=== PATIENT | female | born 2000 | race African-American/Black ===

== ENCOUNTER 2025-09-20 10:59 | Emergency (ER) | payer OTHER, SELFPAY ==
[2025-09-20 11:01] VITALS: BP 134/89; PULSE 101; RESP 18; TEMP 36.7; O2SAT 100
[2025-09-20 12:08] LABS: Add Urine Microscopic? YES; Appearance Urine Clear (Clear); Glucose Urine UA Negative (Negative); Leukocyte Esterase Ur Negative LEU/UL (Negative); Nitrate Urine Negative (Negative); Non Pathogenic Casts 0-2; Specific Grav Ur 1.034 (1.001-1.035)
[2025-09-20] MEDS: cefTRIAXone 0.5 GM, LIDOCAINE 1% LOCAL INJ 2.1 ML IM (12:18)
[2025-09-20] MEDS: KETOROLAC 30 MG/ML VIAL (*BKC) 15 MG IM (12:19)
[2025-09-20] MEDS: DOXYCYCLINE HYCLATE 100 MG TABLET PO (12:20)
--- OUTSIDE RECORDS SUMMARY | 2025-09-20 12:35 | XMS_ITS | Encounter Summary ---
Author Organization [facility] Healthcare Address [address] [place] [address] Care Team Providers Care Business Continuity Strategy Director Name Role Phone Shanta Guerra NP Primary Care Provider Encounter Details Date Type Department Care Team (Latest Contact Info) Description 07/21/2025 Results Follow-Up [facility] Medical [facility] Obstetrical Gynecology [address] [phone] Mariangel Berrios MD [facility] [address] hCG, blood, quantitative Social History Tobacco Use Types Packs/Day Years Used Date Smoking Tobacco: Never Smokeless Tobacco: Never Alcohol Use Standard Drinks/Week Comments Never 0 (1 standard drink = 0.6 oz pur e alcohol) Social Connection and Isolation Panel Answer Date Recorded In a typical week, how many times do you talk on the phone with family, friends, or neighbors? More than three times a week 12/03/2022 How often do you get togethe r with friends or relatives? More than three times a week 12/03/2022 How often do you attend chur or restoration services? Patient declined 12/03/2022 Do you belong to any clubs o r organizations such as uatsdin groups, unions, fraternal or athletic groups, or school groups? Patient declined 12/03/2022 How often do you attend meet ings of the clubs or organizations you belong to? Patient declined 12/03/2022 Are you , , di vorced, , never , or living with a partner? Living with partner 12/03/2022 Overall Financial Resource Strain (CARDIA) Answe r Date Recorded How hard is it for you to pa y for the very basics like food, housing, medical care, and heating? Not hard at all 12/03/2022 PHQ-2 Answer Date Recorded PHQ-2 Total Score (If total score is 3 or more points, staff should administer the PHQ-9) 4 06/10/2025 [facility] [place] [facility] Occup[facility] ional [facility] - Occupational Stress Questionnaire Answer Date Recorded Do you feel stress - tense, restless, nervous, or anxious, or unable to sleep at night because your mind is troubled all the time - these days? Only a little 12/03/2022 Exercise Vital Sign Answer Date Recorde d On average, how many days pe r week do you engage in moderate to strenuous exercise (like a brisk walk)? 0 days Minutes of Exercise per Session Not on file 12/03/2022 Hunger Vital Sign Answer Date Recorded Within the past 12 months, y ou worried that your food would run out before you got the money to buy more. Never true 12/03/19 23 Within the past 12 months, t he food you bought just didn't last and you didn't have money to get more. Never true 12/03/2022 PRAPARE - Transportation Answer Date Re corded In the past 12 months, has l ack of transportation kept you from medical appointments or from getting medications? No 11/21 In the past 12 months, has l ack of transportation kept you from meetings, work, or from getting things needed for daily living? No 12/03/2022 Housing Stability Vital Sign Answer Adam e Recorded In the last 12 months, was t here a time when you were not able to pay the mortgage or rent on time? No 12/03/2022 Number of Places Lived in the Last Year Not on f ile 12/03/2022 In the last 12 months, was t here a time when you did not have a steady place to sleep or slept in a jail (including now)? No 12/03/2022 [place] Depression Scale Answer Date Recorded [place] Depression Scale Total 11 02/18/2023 The thought of harming myself has occurred to me . Never 02/18/2023 PHQ-9 Answer Date Recorded PHQ-9 Total Score 8 06/10/2025 AUDIT-C Answer Date Recorded Q1: How often do you have a drink containing alc ohol? Never 06/10/2025 Average Number of Drinks Not on file 025 Frequency of Binge Drinking Not on file 05/22 Personal Safety Answer Date Recorded Have you ever been in or are you currently in a harmful physical or emotional relationship or is someone making you feel afraid or unsafe? Denies 02/17/2025 Comments No Sex and Gender Information Value Date Recorded Sex Assigned at Not on file Legal Sex Female 2:00 PM CDT Gender Identity Female 12/28/2021 4:59 PM [employer] Sexual Orientation Bisexual 04/07/2022 11 :14 PM CDT Occupation Industry Job Start Date Job End Date [employer] Not on file Not on file Not o n file [employer] Not on file Not on file Not on file unemployed Not on file Not on file Not on file documented as of this encounter Plan of Treatment Not on file documented as of this encounter Visit Diagnoses Not on filedocumented in this encounter Care Teams Business Continuity Strategy Director Relationship Specialty Start Date End Date Shanta Guerra NP [address] [place] [id number] PCP - General Family Medicine 06/10/25 documented as of this encounter
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
--- OUTSIDE RECORDS SUMMARY | 2025-09-20 12:35 | XMS_ITS | Encounter Summary ---
Author Organization [facility] Healthcare Address [address] [place] [address] Care Team Providers Care Information Technology Account Manager Name Role Phone Shanta Guerra NP Primary Care Provider [phone] Encounter Details Date Type Department Care Team (Latest Contact Info) Description 08/31/2025 Results Follow-Up [facility] Medical Group Primary Care at [address] [phone] Shanta Guerra NP [address] [place] [address] hCG, blood, quantitative Social History Tobacco [...] often do you attend chur ch or synagogue services? Patient declined 12/03/2022 Do you belong to any clubs o r organizations such as orthodoxy groups, unions, fraternal or athletic groups, or [...] staff should administer the PHQ-9) 4 06/10/2025 [facility] of Occupat ional [facility] - Occupational Stress Questionnaire Answer Date Recorded [...] place to sleep or slept in a prison (including now)? No 12/03/2022 [place] Depression Scale Answer Date Recorded [place] Depression Scale Total 11 02/18/2023 The thought [...] CDT Gender Identity Female 12/28/2021 4:59 PM EXTENSION PROFESSOR Sexual Orientation Bisexual 04/07/2022 11 :14 PM CDT Occupation Industry Job Start Date Job End Date [employer] Not on file Not on file Not o n file [employer] Not on file Not on file Not on file unemployed Not on file Not on file Not on file documented as of this encounter Functional Status * BP Location Answer Date of Assessment Author Left arm 08/31/2025 2:28 PM EXTENSION PROFESSOR Asif Carolina MA * BP Location Answer Date of Assessment Author Left arm 08/31/2025 2:28 PM EXTENSION PROFESSOR Asif Carolina MA documented as of this encounter Plan of Treatment Not on file documented as of this encounter Visit Diagnoses Not on filedocumented in this encounter Care Teams Information Technology Account Manager Relationship Specialty Start Date End Date Shanta Guerra NP [address] [place] [phone] PCP - General Family Medicine 06/10/25 documented as of this encounter
--- NOTE | 2025-09-20 12:50 | ED_ITS ---
HPI - Back Pain/Injury General Chief Complaint: Back Pain/Injury Stated Complaint: back pain Time Seen by Provider: 09/20/25 11:50 History of Present Illness HPI Narrative: Patient here with low back pain after lifting heavy heavy boxes last night, she has also noticed vaginal discharge and is concerned for possible STD and would like to get tested and treated. No difficulty walking, no focal numbness or weakness. Related Data Allergies Allergy/AdvReac Type Severity Reaction Status Date / Time No Known Allergies Allergy Verified 09/20/25 11:58 Review of Systems Review of Systems: All systems reviewed & are unremarkable except as noted in HPI and below Exam Narrative: EXAMINATION OF ORGAN SYSTEMS/BODY AREAS: Constitutional: Vital signs per nursing GENERAL:[No acute distress, non-toxic appearing.] HEAD: Normal with no signs of head trauma. EYES: EOMI, conjunctiva normal ENT: Hearing grossly intact LUNGS: Nonlabored breathing. HEART: [Regular rate and rhythm] ABD: [Soft], [nontender to palpation] EXT: Normal range of motion, no midline tenderness to back, very slight tenderness to the left lower back SKIN: [No rashes or lesions.] NEURO: [Alert and oriented x 3. No gross focal sensory or strength deficits.] Ambulating with normal steady gait PSYCH: Normal affect Course Vital Signs Vital signs: Vital Signs Temperature 98.1 F 09/20/25 11:01 Pulse Rate 101 H 09/20/25 11:01 Respiratory Rate 18 09/20/25 11:01 Blood Pressure 134/89 09/20/25 11:01 Pulse Oximetry 100 09/20/25 11:01 Oxygen Delivery Room Air 09/20/25 11:01 Temperature 98.1 F 09/20/25 11:01 Pulse Rate 101 H 09/20/25 11:01 Respiratory Rate 18 09/20/25 11:01 Blood Pressure 134/89 09/20/25 11:01 Pulse Oximetry 100 09/20/25 11:01 Oxygen Delivery Room Air 09/20/25 11:01 MDM - Back Pain/Injury MDM Narrative Medical decision making narrative: 24-year-old female with acute back pain, also would like to have STD testing and treatment. Normal motor and sensory exam. Patient able to ambulate. No evidence of acute cord compression, osteomyelitis/discitis or cauda equina without saddle anesthesia, urinary retention/incontinence, numbness/tingling in lower extremiti es, fever, history of IV drug use, cancer or immunosuppression. Doubt AAA or aortic dissection without severe pain/discomfort or any neurovascular deficits Toradol given for pain relief On reevaluation, the symptoms are improved. Patient is able to rest more comfortably. Ambulating without difficulty. Gonorrhea/chlamydia sent for testing, antibiotic started after discussion with patient, they are counseled on safe sex practices and should follow up regarding results, and can return to ER for any worsening symptoms. Lab Data Labs: Lab Results 09/20/25 Range/Units 12:00 Urine Color Yellow (Yellow) Urine Appearance Clear (Clear) Urine pH 5.5 (5.0-9.0) Ur Specific [place] 1.034 (1.001-1.035) Urine Protein Trace (Negative) mg/dL Urine Glucose (UA) Negative (Negative) mg/dL Urine Ketones Trace H (Negative) mg/dL Ur Blood (Man) Negative (Negative) Urine Nitrate Negative (Negative) Urine Bilirubin Negative (Negative) Urine Urobilinogen 1.0 (<2.0) mg/dL Leukocyte Esterase Rfl Negative (Negative) JUVENAL/UL Urine RBC 0-2 (0-2) /hpf Urine WBC 0-5 (0-3) /hpf Ur Squamous Epith Cells Occasional (Few) /hpf Urine Bacteria 1+ H /hpf Urine Casts 0-2 Discharge Plan Discharge Clinical Impression: Strain of lumbar region, Concern about STD in female without diagnosis Patient Disposition: Home Condition: Stable Instructions: Antibiotic Form, Sexually Transmitted Diseases (ED), Acute Low Back Pain (ED) Additional Instructions: Please follow up with your doctor; you can always return for any further issues. Take the medications as prescribed. Take ibuprofen and Tylenol as needed for pain. You can always return to the ER for any further issues. Patient Language: Barbadian Prescriptions: New doxycycline hyclate 100 mg capsule 100 mg PO Q12H 7 Days Qty: 14 0RF metronidazole 500 mg tablet 500 mg PO Q12H Qty: 14 0RF Follow-up/Referrals: PHYSICIAN NOT ON STAFF,NONSTAFF [Non-Staff]
--- OUTSIDE RECORDS SUMMARY | 2025-09-20 13:30 | XMS_ITS | Encounter Summary ---
Author Organization [facility] Healthcare Address [address] [place] [address] Care Team Providers Care Supervisor In Circuit Testing Name Role Phone Shanta Guerra NP Primary Care Provider [phone] Encounter Details Date Type Department Care Team (Latest Contact Info) Description 07/21/2025 Results Follow-Up [facility] Medical Group Obstetrical Gynecology [address] [phone] Mariangel Berrios MD [facility] [address] hCG, blood, quantitative Social History [...] How often do you attend chur or gnosticist services? Patient declined 12/03/2022 Do you belong to any clubs o r organizations such as shinto groups, unions, fraternal or athletic groups, or [...] staff should administer the PHQ-9) 4 06/10/2025 [facility] [place] of Occupat ional Health - Occupational Stress [...] place to sleep or slept in a skilled nursing (including now)? 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
--- OUTSIDE RECORDS SUMMARY | 2025-09-20 13:30 | XMS_ITS | Encounter Summary ---
Author Organization [facility] Healthcare Address [address] [place] [address] Care Team Providers Care Fixture Repairer Fabricator Name Role Phone Shanta Guerra NP Primary Care Provider [phone] Encounter Details Date Type Department Care Team (Latest Contact Info) Description 08/31/2025 Results Follow-Up [facility] Medical Group Primary Care at [address] [phone] Shanta Guerra NP [address] [place] [address] hCG, blood, quantitative Social History Tobacco [...] often do you attend chur ch or latter day services? Patient declined 12/03/2022 Do you belong to any clubs o r organizations such as temple groups, unions, fraternal or athletic groups, or [...] staff should administer the PHQ-9) 4 06/10/2025 [facility] of Occupat ional [facility] - Occupational Stress Questionnaire Answer Date [...] place to sleep or slept in a assisted (including now)? 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 Not on file Not o n file [employer] Not on file Not on file Not on file unemployed Not on file Not on file Not on file documented as of this encounter Functional Status * BP Location Answer Date of Assessment Author Left arm 08/31/2025 2:28 PM CONSTRUCTION FIELD ENGINEER Asif Carolina MA * BP Location Answer Date of Assessment Author Left arm 08/31/2025 2:28 PM CONSTRUCTION FIELD ENGINEER Asif Carolina MA documented as of this encounter Plan of Treatment Not on file documented as of this encounter Visit Diagnoses Not on filedocumented in this encounter Care Teams Fixture Repairer Fabricator Relationship Specialty Start Date End Date Shanta Guerra NP [address] [place] [phone] PCP - General Family Medicine 06/10/25 documented as of this encounter
--- OUTSIDE RECORDS SUMMARY | 2025-09-20 13:30 | XMS_ITS | Clinical Summary ---
Author [facility] Address [address] [place] [phone] Care Team Providers Care Public Information Officer Name Role Phone Shanta Guerra NP Primary Care Provider [phone] Allergies No known active allergies Medications albuterol [...] 09/02/2025 Assessment & Plan (09/02/2025 5:33 AM ENGINEER SYSTEM ADMINISTRATOR): Ordered serum hCG, not currently on control, [...] 09/02/2025 Assessment & Plan (09/02/2025 5:24 AM ENGINEER SYSTEM ADMINISTRATOR): Improved Encouraged to: Make healthy food choices, [...] 06/10/2025 Assessment & Plan (09/02/2025 5:32 AM ENGINEER SYSTEM ADMINISTRATOR): Previously referred to Plastic Surgery Reviewed Dr. [...] 09/17/22 Assessment & Plan (11/15/2022 11:34 AM ENGINEER SYSTEM ADMINISTRATOR): S/p anesthesia consult at [facility] 09/17/22 Class 3 severe obesity due t o excess calories without serious comorbidity with body mass index (BMI) of 40.0 to 44.9 in adult 08/30/2021 Assessment & Plan (09/02/2025 5:24 AM ENGINEER SYSTEM ADMINISTRATOR): Improved Encouraged to: Make healthy food choices, [...] (11/30/2022): Added automatically from request for surgery [id number] Supervision of high-risk pre gnancy, third trimester 10/23/2022 06/10/2025 Overview (10/27/2022): [x] Co-management vs. [] Full M Care; [] Red Team [x] Blue Team Referring Provider: Mane Garcia [phone] [] or Medicare Insurance [x] Dating Criteria: [...] [] MOC: [] Method of feeding: [] Lgsw: [] PP Depression Discussed: Poor growth affecting [...] dopplers Assessment & Plan (11/15/2022 11:34 AM ENGINEER SYSTEM ADMINISTRATOR): Diagnosed by AC <10% (EFW >10%). Previously [...] 08/30/202103/22 Assessment & Plan (08/30/2021 2:21 PM ENGINEER SYSTEM ADMINISTRATOR): Test in office negative, reviewed with patient Will order hcg quantitative, will notify her of results as they become available Missed menses 08/30/2021 05/18/2022 Assessment & Plan (08/30/2021 2:22 PM ENGINEER SYSTEM ADMINISTRATOR): Discussed that this could be secondary to irregularity of ocp, additionally could be another comorbidity. Will evaluate further with labs, will notify her of results as they become available. She will f/u in office in the next week - we discussed possibly initiating an ocp pending lab results. Encounters Date Type Department Care Team Description 08/31/2025 3:15 PM ENGINEER SYSTEM ADMINISTRATOR Lab [facility] [address] [place] [phone] Breast tenderness 08/31/2025 2:15 PM ENGINEER SYSTEM ADMINISTRATOR Office Visit [facility] Primary Care at [address] [place] [phone] Shanta Guerra NP Breast tenderness (Primary Dx); Macromastia; Class 3 severe obesity due to excess calories without serious comorbidity with body mass index (BMI) of 40.0 to 44.9 in adult; Severe obesity (HCC) 08/31/2025 Results Follow-Up [facility] Primary Care at [address] [phone] Shanta Guerra NP hCG, blood, quantitative 08/25/2025 10:45 AM ENGINEER SYSTEM ADMINISTRATOR Therapy [facility] 1 OP Physical Therapy [address] [place] [address] Ihsan Garcia, LAND CLASSIFIER Spondylosis of thoracolumbar spine (Primary Dx); Chronic bilateral low back pain with left-sided sciatica 08/18/2025 10:45 AM CDT [facility] 1 OP Physical Therapy [address] [place] [address] Ihsan Garcia, LAND CLASSIFIER Spondylosis of thoracolumbar spine (Primary Dx); Chronic bilateral low back pain with left-sided sciatica 07/28/2025 10:00 AM CDT [facility] 1 OP Physical Therapy [address] [place] [address] Ihsan Garcia, LAND CLASSIFIER Spondylosis of thoracolumbar spine (Primary Dx); Chronic bilateral low back pain with left-sided sciatica 07/21/2025 9:45 AM CDT Lab [facility] Building [address] [place] [address] Missed periods 07/21/2025 9:00 AM CDT [facility] 1 OP Physical Therapy [address] [place] [address] Range, Yumiko, LAND CLASSIFIER Spondylosis of thoracolumbar spine (Primary Dx); Chronic bilateral low back pain with left-sided sciatica 07/21/2025 Results Follow-Up [facility] Obstetrical Gynecology [address] [place] [address] [address] [place] [phone] Mariangel Berrios MD hCG, blood, quantitative 07/20/2025 Telephone [facility] Primary Care at [address] [place] [phone] Shanta Guerra NP 07/16/[address] [facility] Office [facility] 1 OP Physical Therapy [address] [place] [address] [address] [place] [address] Elisa, Yumiko, LAND CLASSIFIER 07/08/2025 10:[address] [facility] Office [facility] 1 OP Physical Therapy [address] [place] [address] [address] [place] [address] Ihsan Garcia, LAND CLASSIFIER Spondylosis of thoracolumbar spine (Primary Dx); Chronic bilateral low back pain with left-sided sciatica; Chronic upper back pain 07/06/2025 Plan of Care Documentation [facility] 1 OP Physical Therapy [address] [place] [address] [address] [place] [address] 07/05/2025 2:[address] [facility] Office [facility] 1 OP Physical Therapy [address] [place] [address] [place] [phone] Dayron Frank, PT Spondylosis of thoracolumbar spine (Primary Dx); Chronic bilateral low back pain with left-sided sciatica; Chronic upper back pain; Cervicalgia 07/01/2025 Orders Only [facility] Obstetrical Gynecology [address] [place] [address] [address] [place] [phone] Mariangel Berrios MD Missed periods (Primary Dx) 06/22/2025 10:30 AM CDT Office Visit [facility] [place] [facility] [address] [place] [address] [place] [phone] Evan Ricardo MD Macromastia (Primary Dx) [...] SURGERY 10/21/2014 - 10/20/2015 Scoliosis surgery at [facility] SECTION 12/03/2022 Medical History Medical History [...] often do you attend chur ch or episcopalian services? Patient declined 12/03/2022 Do you belong to any clubs o r organizations such as christianity groups, unions, fraternal or athletic groups, or [...] staff should administer the PHQ-9) 4 06/10/2025 [facility] - Occupational Stress Questionnaire Answer Date [...] place to sleep or slept in a long term (including now)? 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 on file Not on file Not [...] GREGG DAKOTA mojica, Mariangel Fontana MD Delivery Location:[facility] C ampus ([facility] L AND D PROCEDURE) Last Filed Vital Signs Vital Sign Reading Time Taken Comments Blood Pressure 112/64 08/31/2025 2:28 PM ENGINEER SYSTEM ADMINISTRATOR Pulse 88 08/31/2025 2:28 PM ENGINEER SYSTEM ADMINISTRATOR Temperature 36.7 C (98 F) 08/31/2025 2:28 PM ENGINEER SYSTEM ADMINISTRATOR Respiratory Rate 14 08/31/2025 2:28 PM ENGINEER SYSTEM ADMINISTRATOR Oxygen Saturation 98% 08/31/2025 2:28 PM ENGINEER SYSTEM ADMINISTRATOR Inhaled Oxygen Concentration - - Weight 119.8 kg (264 lb 1.6 oz) 08/31/2025 2:28 PM ENGINEER SYSTEM ADMINISTRATOR Height 167.6 cm (5' 5.98) 08/31/2025 2:28 PM CS T Body Mass Index 42.65 08/31/2025 2:28 PM ENGINEER SYSTEM ADMINISTRATOR Plan of Treatment Health Maintenance Due Date [...] HCG, BLOOD, QUANTITATIVE Routine 08/31/2025 3:17 PM ENGINEER SYSTEM ADMINISTRATOR Breast tenderness HCG, BLOOD, QUANTITATIVE Routine 07/21/2025 9:49 AM CDT Missed periods N. GONORRHOEAE/C. TRACHOMATIS AMPLIFICATION Routine 10/12/2024 9:11 AM ENGINEER SYSTEM ADMINISTRATOR Screening examination for STD (sexually transmitted disease) HEPATITIS C ANTIBODY Routine 04/16/2022 12:06 PM CDT Obesity affecting in first trimester from Last 3 Months or Most Recently Relevant to Health Maintenance Results * hCG, blood, quantitative (08/31/2025 3:17 PM ENGINEER SYSTEM ADMINISTRATOR) hCG, quant <5.0 0.0 - 5.0 IUnits/L Comment: Interpretive Data Male: < 5 IU/L Non- premenopausal Female: <5 IU/L The Lizzeth hCG Beta Quant assay procedure was used. Results from different manufacturers or methods may not be comparable. Serial testing should be performed using the same method. Interpretive Data was last revised on 2023 Testing performed by: [facility], [address] [place] [address]., [id number] Blood 08/31/2025 3:17 PM ENGINEER SYSTEM ADMINISTRATOR 08/31/2025 3:56 PM ENGINEER SYSTEM ADMINISTRATOR us Shanta Guerra NP LAB BLOOD ORDERABLES Edited Resu lt - Final [facility] [address] [facility] Department [place] [address] * hCG, blood, quantitative (07/21/2025 [...] last revised on 2023 Testing performed by: [facility], [address] [place] [address]., [id number] Blood 07/21/2025 9:49 AM CDT 07/21/2025 10:13 AM CDT Mariangel Berrios MD LAB BLOOD ORDERABLES Angela l Result Performing Organization Address [facility] Co de Phone Number [place] [phone] [facility] [place] [address] * N. gonorrhoeae/C. trachomatis Amplification Urine (10/12/2024 9:11 AM ENGINEER SYSTEM ADMINISTRATOR) Pathologist [facility] C. trachomatis Not Detected [facility] Comment:Testing performed by : [facility], [address] [place] [address]., [address] N. gonorrhoeae Not Detected DANG Comment: Interpretive Data This assay detects Chlamydia trachomatis and Neisseria gonorrhoeae by nucleic acid amplification testing (NAAT). This assay has been cleared by the [place] Food and Drug administration. The performance characteristics of this test have been verified by the [facility] Molecular Infectious Disease laboratory. The performance characteristics of this test have not been evaluated in individuals less than 14 years of age. Current Interpretive Data was last revised on 2023. Testing performed by: [facility], [address] [place] [address]., [id number] Urine (None) 10/12/2024 9:11 AM ENGINEER SYSTEM ADMINISTRATOR 10/12/2024 7:56 PM ENGINEER SYSTEM ADMINISTRATOR Mariangel Berrios MD LAB MICROBIOLOGY - GENERA L ORDERABLES Final Result Performing Organization Address City/[facility]/ZIP Co de Phone Number [facility] [address] [facility] [place] [address] [facility] * Hepatitis C antibody (04/16/2022 12:06 [...] CDT 04/16/2022 6:29 PM CDT Dominique Hewitt [facility] LAB MICROBIOLOGY - GENE RAL ORDERABLES Final Result [facility] [address] [facility] Department [place] [address] from Last 3 Months or Most Recently Relevant to Health Maintenance [facility] Advance Directives For more information, please contact: [phone] * Full Code (Latest Code Status on File) Date Activated Date Inactivated Comments 12/03/2022 10:25 AM 12/05/2022 4:13 PM * Full Code Date Activated Date Inactivated Comments 12/03/2022 5:14 AM 12/03/2022 10:24 AM Full CPR in case of cardiopulmonary arrest Care Teams Public Information Officer Relationship Specialty Start Date End Date Shanta Guerra NP [address] [place] [phone] PCP - General Family Medicine 06/10/25
== END 2025-09-20 12:36 | disposition home or self-care (01) ==
PROVIDERS: Emergency Provider Emergency Medicine; PCP Family Medicine
DX: S39.012A Strain of muscle, fascia and tendon of lower back, initial encounter (principal); Z11.3 Encounter for screening for infections with a predominantly sexual mode of transmission; X50.0XXA Overexertion from strenuous movement or load, initial encounter
CPT/HCPCS: 81001; 96372; 99284; A9270; J0696; J1885; J2003

== ENCOUNTER 2025-10-19 21:28 | Emergency (ER) | payer OTHER, SELFPAY ==
--- OUTSIDE RECORDS SUMMARY | 2025-10-19 21:30 | XMS_ITS | Continuity of Care Document ---
Author Name Esthela Farris Address [address] [place] [address] Organization Unknown Address [address] [place] [address] Medications No known medications Problems No known problems
--- OUTSIDE RECORDS SUMMARY | 2025-10-19 21:30 | XMS_ITS | Clinical Summary ---
Author Organization [facility] Address [address] [place] [phone] Care Team Providers Care Entry Level Administrative Assistant Name Role Phone Shanta Guerra NP Primary Care Provider [phone] Allergies No known active allergies Medications albuterol [...] 09/02/2025 Assessment & Plan (09/02/2025 5:33 AM SWITCHBOARD WIRER): Ordered serum hCG, not currently on control, [...] 09/02/2025 Assessment & Plan (09/02/2025 5:24 AM SWITCHBOARD WIRER): Improved Encouraged to: Make healthy food choices, [...] 06/10/2025 Assessment & Plan (09/02/2025 5:32 AM SWITCHBOARD WIRER): Previously referred to Plastic Surgery Reviewed Dr. [...] 09/17/22 Assessment & Plan (11/15/2022 11:34 AM SWITCHBOARD WIRER): S/p anesthesia consult at [facility] 09/17/22 Class 3 severe obesity due t o excess calories without serious comorbidity with body mass index (BMI) of 40.0 to 44.9 in adult 08/30/2021 Assessment & Plan (09/02/2025 5:24 AM SWITCHBOARD WIRER): Improved Encouraged to: Make healthy food choices, [...] (11/30/2022): Added automatically from request for surgery [id number] Supervision of high-risk pre gnancy, third trimester 10/23/2022 06/10/2025 Overview (10/27/2022): [x] Co-management vs. [] Full M Care; [] Red Team [x] Blue Team Referring Provider: Mane Garcia [phone] [] or Medicare Insurance [x] Dating Criteria: [...] [] MOC: [] Method of feeding: [] Bell Hole Digger: [] PP Depression Discussed: Poor growth affecting [...] dopplers Assessment & Plan (11/15/2022 11:34 AM SWITCHBOARD WIRER): Diagnosed by AC <10% (EFW >10%). Previously [...] 08/30/202103/22 Assessment & Plan (08/30/2021 2:21 PM SWITCHBOARD WIRER): Test in office negative, reviewed with patient Will order hcg quantitative, will notify her of results as they become available Missed menses 08/30/2021 05/18/2022 Assessment & Plan (08/30/2021 2:22 PM SWITCHBOARD WIRER): Discussed that this could be secondary to irregularity of ocp, additionally could be another comorbidity. Will evaluate further with labs, will notify her of results as they become available. She will f/u in office in the next week - we discussed possibly initiating an ocp pending lab results. Encounters Date Type Department Care Team Description 08/31/2025 3:15 PM SWITCHBOARD WIRER Lab [facility] [address] [place] [phone] Breast tenderness 08/31/2025 2:15 PM SWITCHBOARD WIRER Office Visit [facility] Primary Care at [address] [place] [phone] Shanta Guerra NP Breast tenderness (Primary Dx); Macromastia; Class 3 severe obesity due to excess calories without serious comorbidity with body mass index (BMI) of 40.0 to 44.9 in adult; Severe obesity (HCC) 08/31/2025 Results Follow-Up [facility] Primary Care at [address] [phone] Shanta Guerra NP hCG, blood, quantitative 08/25/2025 10:45 AM SWITCHBOARD WIRER Therapy [facility] 1 OP Physical Therapy [address] [place] [phone] Ihsan Garcia, ENVIRONMENTAL SCIENCE PROFESSOR Spondylosis of thoracolumbar spine (Primary Dx); Chronic bilateral low back pain with left-sided sciatica 08/18/2025 10:45 AM CDT [facility] 1 OP Physical Therapy [address] [place] [phone] Ihsan Garcia, ENVIRONMENTAL SCIENCE PROFESSOR Spondylosis of thoracolumbar spine (Primary Dx); Chronic bilateral low back pain with left-sided sciatica 07/28/2025 10:00 AM CDT [facility] 1 OP Physical Therapy [address] [place] [phone] Ihsan Garcia, ENVIRONMENTAL SCIENCE PROFESSOR Spondylosis of thoracolumbar spine (Primary Dx); Chronic bilateral low back pain with left-sided sciatica 07/21/2025 9:45 AM CDT Lab [facility] Building [address] [place] [phone] Missed periods 07/21/2025 9:00 AM CDT [facility] 1 OP Physical Therapy [address] [place] [phone] Range, Yumiko, ENVIRONMENTAL SCIENCE PROFESSOR Spondylosis of thoracolumbar spine (Primary Dx); Chronic bilateral low back pain with left-sided sciatica 07/21/2025 Results Follow-Up [facility] Obstetrical Gynecology [address] [place] [address] Mariangel Berrios MD hCG, blood, quantitative 07/20/2025 Telephone [facility] at [place] [address] [place] [phone] Shanta Guerra NP from Last 3 Months Immunizations Immunization Administration [...] SURGERY 10/21/2014 - 10/20/2015 Scoliosis surgery at [facility] SECTION 12/03/2022 Medical History Medical History [...] week 12/03/2022 How often do you attend [facility] or mandaeism services? Patient declined 12/03/2022 Do you belong to any clubs o r organizations such as advent groups, unions, fraternal or athletic groups, or [...] staff should administer the PHQ-9) 4 06/10/2025 [facility] of Occupat ional Health - Occupational Stress [...] place to sleep or slept in a retirement (including now)? 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 on file Not [...] tion Spinal N Livin g 8 9 MONREAL -ZEINA ,GIRL GREGG Dennis mojica, Mariangel Fontana MD Delivery Location:[facility] Main C ampus ([facility] L AND D PROCEDURE) Last Filed Vital Signs Vital Sign Reading Time Taken Comments Blood Pressure 112/64 08/31/2025 2:28 PM SWITCHBOARD WIRER Pulse 88 08/31/2025 2:28 PM SWITCHBOARD WIRER Temperature 36.7 C (98 F) 08/31/2025 2:28 PM SWITCHBOARD WIRER Respiratory Rate 14 08/31/2025 2:28 PM SWITCHBOARD WIRER Oxygen Saturation 98% 08/31/2025 2:28 PM SWITCHBOARD WIRER Inhaled Oxygen Concentration - - Weight 119.8 kg (264 lb 1.6 oz) 08/31/2025 2:28 PM SWITCHBOARD WIRER Height 167.6 cm (5' 5.98) 08/31/2025 2:28 PM CS T Body Mass Index 42.65 08/31/2025 2:28 PM SWITCHBOARD WIRER Plan of Treatment Health Maintenance Due Date [...] HCG, BLOOD, QUANTITATIVE Routine 08/31/2025 3:17 PM SWITCHBOARD WIRER Breast tenderness HCG, BLOOD, QUANTITATIVE Routine 07/21/2025 9:49 AM CDT Missed periods N. GONORRHOEAE/C. TRACHOMATIS AMPLIFICATION Routine 10/12/2024 9:11 AM SWITCHBOARD WIRER Screening examination for STD (sexually transmitted disease) HEPATITIS C ANTIBODY Routine 04/16/2022 12:06 PM CDT Obesity affecting in first trimester from Last 3 Months or Most Recently Relevant to Health Maintenance Results * hCG, blood, quantitative (08/31/2025 3:17 PM SWITCHBOARD WIRER) hCG, quant <5.0 0.0 - 5.0 IUnits/L Comment: Interpretive Data Male: < 5 IU/L Non- premenopausal Female: <5 IU/L The Lizzeth hCG Beta Quant assay procedure was used. Results from different manufacturers or methods may not be comparable. Serial testing should be performed using the same method. Interpretive Data was last revised on 2023 Testing performed by: [facility], [address] [place] [address], [place]., [address] Blood 08/31/2025 3:17 PM SWITCHBOARD WIRER 08/31/2025 3:56 PM SWITCHBOARD WIRER us Shanta Guerra SECURITIES TRADER LAB BLOOD ORDERABLES Edited Resu lt - Final Performing Organization Address [facility] Co de Phone Number [facility] [address] [place] [address] * hCG, blood, quantitative (07/21/2025 9:49 AM CDT) Pathologist [facility] hCG, quant <5.0 0.0 - 5.0 IUnits/L Comment: Interpretive Data Male: < 5 IU/L Non- premenopausal Female: <5 IU/L The Lizzeth hCG Beta Quant assay procedure was used. Results from different manufacturers or methods may not be comparable. Serial testing should be performed using the same method. Interpretive Data was last revised on 2023 Testing performed by: [facility], [address] [place] [address]., [address] Blood 07/21/2025 9:49 AM CDT 07/21/2025 10:13 AM CDT Mariangel Marizol Berrios MD LAB BLOOD ORDERABLES Angela l Result Performing Organization Address [facility] Co de Phone Number [place] [phone] [facility] [place] [address] * N. gonorrhoeae/C. trachomatis Amplification Urine (10/12/2024 9:11 AM SWITCHBOARD WIRER) [facility] C. trachomatis Not Detected [facility] Comment:Testing performed by : [facility], [address] [place] [address], [place]., [address] N. gonorrhoeae Not Detected [facility] Comment: Interpretive Data This assay detects Chlamydia trachomatis and Neisseria gonorrhoeae by nucleic acid amplification testing (NAAT). This assay has been cleared by the [place] Food and Drug administration. The performance characteristics of this test have been verified by the [facility] Molecular Infectious Disease laboratory. The performance characteristics of this test have not been evaluated in individuals less than 14 years of age. Current Interpretive Data was last revised on 2023. Testing performed by: [facility], [address] [place] [address], [place]., [address] Urine (None) 10/12/2024 9:11 AM SWITCHBOARD WIRER 10/12/2024 7:56 PM SWITCHBOARD WIRER Mariangel Berrios MD LAB MICROBIOLOGY - GENERA L ORDERABLES Final Result Performing Organization Address [facility] de Phone Number [place] [phone] [facility] [place] [address] [facility] * Hepatitis C antibody (04/16/2022 12:06 PM CDT) Hep C Ab Nonreactive Nonreactive [facility] Comment: Interpretive Data Nonreactive: Antibodies to HCV [...] CDT 04/16/2022 6:29 PM CDT Dominique Hewitt CNM LAB MICROBIOLOGY - GENE RAL ORDERABLES Final Result Performing Organization Address [facility] de Phone Number [address] [place] [address] from Last 3 Months or Most Recently Relevant to Health Maintenance Insurance [employer] [facility] [employer] [facility] Advance Directives For more information, please contact: [phone] * Full Code (Latest Code Status on File) Date Activated Date Inactivated Comments 12/03/2022 10:25 AM 12/05/2022 4:13 PM * Full Code Date Activated Date Inactivated Comments 12/03/2022 5:14 AM 12/03/2022 10:24 AM Full CPR in case of cardiopulmonary arrest Care Teams Entry Level Administrative Assistant Relationship Specialty Start Date End Date Shanta Guerra NP [address] [place] [phone] PCP - General Family Medicine 06/10/25
--- OUTSIDE RECORDS SUMMARY | 2025-10-19 21:30 | XMS_ITS | Continuity of Care Document ---
Author Name Esthela Farris Address [address] [place] [address] Organization Unknown Address [address] [place] [address] Medications No known medications Problems No known problems
--- OUTSIDE RECORDS SUMMARY | 2025-10-19 21:30 | XMS_ITS | Encounter Summary ---
Author Organization [facility] Healthcare Address [address] [place] [address] Care Team Providers Care Commissioned Police Officer Name Role Phone Shanta Guerra NP Primary Care Provider [phone] Encounter Details Date Type Department Care Team (Latest Contact Info) Description 08/31/2025 Results Follow-Up [facility] Medical Group Primary Care at [address] [phone] Shanta Guerra NP [address] [place] [phone] hCG, blood, quantitative Social History Tobacco [...] often do you attend chur ch or cheondoism services? Patient declined 12/03/2022 Do you belong to any clubs o r organizations such as adventism groups, unions, fraternal or athletic groups, or [...] staff should administer the PHQ-9) 4 06/10/2025 [facility] of Occupat ional [facility] - Occupational Stress Questionnaire Answer Date [...] place to sleep or slept in a alf (including now)? 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
[2025-10-19 21:47] VITALS: BP 117/59; PULSE 80; RESP 20; TEMP 36.9; O2SAT 100
[2025-10-20 01:15] VITALS: BP 131/89; PULSE 85; RESP 20; TEMP 36.3; O2SAT 99
--- NOTE | 2025-10-20 01:24 | ED.URI ---
HPI - URI/Sore Throat General Chief Complaint: Upper Respiratory Infection Stated Complaint: chest congestion Time Seen by Provider: 10/20/25 01:24 History of Present Illness HPI Narrative: Patient is a 25-year-old female who presents to the ER with an upper respiratory infection. She reports her symptoms started approximately 2 days ago. Patient endorses a cough, body aches, headache, and congestion. She denies any recent sore throat, fevers, or wheezing. Patient reports her only medical history is a spinal fusion when she was young. She reports she does not take any daily medications. Related Data Allergies Allergy/AdvReac Type Severity Reaction Status Date / Time No Known Allergies Allergy Verified 10/19/25 21:55 Review of Systems Review of Systems: All systems reviewed & are unremarkable except as noted in HPI and below Exam Narrative: GENERAL: Well appearing, obese, non-toxic, in no acute distress. HEAD: Normocephalic, atraumatic. NECK: Supple. No adenopathy, no masses. RESPIRATORY: Airway patent, respirations nonlabored. Clear to auscultation bilaterally, no rales, rhonchi, wheezing. CARDIOVASCULAR: Regular rate and rhythm without murmurs, rubs, or gallops. Peripheral pulses 2+ and equal bilaterally. ABDOMINAL: Soft, nontender, nondistended, no hepatosplenomegaly. Normoactive BS. MUSCULOSKELETAL: Moves all extremities. Strength/ROM intact without gross deformities. SKIN: Warm, dry, normal color. No rashes. NEURO: A&O X3. Speech clear. Cranial nerves II-XII intact. No ataxic movements. PSYCHIATRIC: Appropriate mood and affect. Normal interaction. Course Vital Signs Vital signs: Vital Signs Temperature 36.9 C 10/19/25 21:47 Pulse Rate 80 10/19/25 21:47 Respiratory Rate 20 10/19/25 21:47 Blood Pressure 117/59 L 10/19/25 21:47 Pulse Oximetry 100 10/19/25 21:47 Oxygen Delivery Room Air 10/19/25 21:47 Temperature 36.3 C L 10/20/25 01:15 Pulse Rate 85 10/20/25 01:15 Respiratory Rate 20 10/20/25 01:15 Blood Pressure 131/89 10/20/25 01:15 Pulse Oximetry 99 10/20/25 01:15 Oxygen Delivery Room Air 10/19/25 21:47 MDM MDM Narrative Medical decision making narrative: Patient is a 25-year-old female who presents to the ER with an upper respiratory infection. She reports her symptoms started approximately 2 days ago. Patient endorses a cough, body aches, headache, and congestion. She denies any recent sore throat, fevers, or wheezing. Patient reports her only medical history is a spinal fusion when she was young. She reports she does not take any daily medications. Labs Ordered: COVID/flu/RSV swab Imaging Ordered: Chest x-ray Medications Ordered: Tylenol p.o. Results: Patient's respiratory swab indicates she has COVID. Diagnosis: COVID, upper respiratory infection Patient Education/Shared MDM: Results of lab work and imaging shared with patient. Upon further discussion with patient, she would like to be discharged home without having her chest x-ray completed. This seems appropriate, as pt's lungs sound clear at time of examination and her breathing is nonlabored. Patient strongly advised to maintain hydration status upon discharge and follow-up with her PCP in the next 2-3 days for further evaluation. She will be discharged home with a prescription for Tessalon Perles, an albuterol inhaler, and Ibuprofen. Strict return precautions provided. Patient verbalized understanding and is in agreement with plan. Vital signs stable at time of discharge. All questions answered. Differential Diagnosis Differential Diagnosis: Upper respiratory infection, COVID, influenza, pneumonia Lab Data [facility] Lab Attestation statement: I personally reviewed the patient's lab results. Labs: Lab Results 10/20/25 Range/Units 01:26 Influenza A (RT-PCR) Negative (Negative) Influenza B (RT-PCR) Negative (Negative) RSV (RT-PCR) Negative (Negative) SARS-CoV-2 RNA (RT-PCR) Positive A (Negative) Discharge Plan Discharge Clinical Impression: Upper respiratory infection, COVID-19 Patient Disposition: Home Condition: Stable Instructions: Antibiotic Form, COVID-19 (Coronavirus Disease 2019) (ED) Additional Instructions: Please return to the ER with any worsening symptoms. Follow-up with primary care provider in the next 2-3 days for re-evaluation. You may take Tylenol and/or ibuprofen for pain/fever control. Please remember to drink lots of water. If he feels short of breath, please use an albuterol inhaler to help relieve your symptoms. You may take Tessalon Perles as needed for relief of your cough. Patient Language: Turkish Prescriptions: New ibuprofen 600 mg tablet 600 mg PO TID PRN (Reason: fever or pain) Qty: 30 0RF benzonatate 100 mg capsule 100 mg PO TID Qty: 30 0RF albuterol sulfate 90 mcg/actuation aerosol powdr breath activated 2 inh inhalation Q4H PRN (Reason: shortness of breath or wheezing) Qty: 1 0RF No Action doxycycline hyclate 100 mg capsule 100 mg PO Q12H 7 Days Qty: 14 0RF metronidazole 500 mg tablet 500 mg PO Q12H Qty: 14 0RF Follow-up/Referrals: Charlie,JAMILAH Womack [Primary Care Provider, Unknown] Stand Alone Forms: Work/School Release IP Time of Disposition: 03:05
[2025-10-20 02:06] LABS: Influenza A QL RT-PCR Negative (Negative); Influenza B QL RT-PCR Negative (Negative); RSV RNA, RT-PCR Negative (Negative); SARS-CoV-2 RNA PCR Positive (Negative)
== END 2025-10-20 04:02 | disposition home or self-care (01) ==
LOC: ANHED 10-20 03:10
PROVIDERS: Emergency Provider Registered Nurse; PCP Family Medicine
DX: U07.1 COVID-19 (principal)
CPT/HCPCS: 87637; 99282